=== PATIENT | male | born 1945 | race Caucasian/White ===

== ENCOUNTER 2016-07-31 07:00 | Emergency (ER) | payer MEDICARE ==
[~2016-07-31] VITALS: Ht 170.2 cm; Wt 78.2 kg
[~2016-07-31 07:00] MED LIST: ATOR20TA65 PO; CYAN500 PO; DILT240C51 PO; DOXA2TAB52 PO; INSU100V27 SQ; LABE200T PO; LISI-610 PO; NITR0.4T SL; NPH,100V11 SUBQ; TIMO5DRO5 BOTH_EYES; WARF5TAB7 PO
[2016-07-31 07:05] VITALS: BP 237/103; PULSE 78; RESP 10; O2SAT 95
--- NOTE | 2016-07-31 07:17 | ED.REPORT ---
HPI-General Illness Date of Service Jul 31, 2016 ED Provider: Woody Santos MD 70 year old diabetic male with chronic deafness and a history of stage 4 chronic kidney disease presents to the ER complaining of constipation last night. Associated symptom of throbbing abdominal pain onset yesterday, mild difficulty breathing, abdominal bloating, nausea, dry heaving, and loss of appetite. Patient states that he experiences a "burning" abdominal pain with his bowel movements. Last normal bowel movement was this morning. He had only an apple last night for dinner, and has been able to tolerate PO liquids. When questioned he admits that he has not taken his blood pressure medication this morning. Nursing Notes Stated Complaint: ABDOMINAL PAIN Chief Complaint: Male Abdominal Pain Nursing Notes Reviewed: Yes Allergies: Coded Allergies: banana (Verified Allergy, Unknown, 02/28/16) Patient stated he hasn't had a banana since the 1969's. He does not recall what reaction he had. Scheduled Atorvastatin Calcium (Atorvastatin Calcium) 20 Mg Tablet 20 MG PO HS Cyanocobalamin (Vitamin B12) 500 Mcg Tablet 1,000 MCG PO DAILY Diltiazem ER (Cartia XT) 240 Mg Cap.er.24h 240 MG PO DAILY Doxazosin (Cardura) 2 Mg Tablet 2 MG PO HS Insulin Regular, Human (Novolin-R U100 Insulin Vial) 100 Unit/1 Ml Vial 8 SQ BIDBL Insulin Regular, Human (Novolin-R U100 Insulin Vial) 100 Unit/1 Ml Vial 16 SQ before dinner Labetalol (Labetalol) 200 Mg Tablet 200 MG PO BID Lisinopril (Zestril) 10 Mg Tablet 10 MG PO HS NPH, Human Insulin Isophane (HUMulin-N U100 Insulin Vial) 100 Unit/1 Ml Vial 36 UNIT SUBQ Before breakfast NPH, Human Insulin Isophane (HUMulin-N U100 Insulin Vial) 100 Unit/1 Ml Vial 32 UNIT SUBQ Before Dinner Timolol Maleate (Timolol Maleate) 5 Ml Drops 1 DROP BOTH_EYES BID Warfarin Sodium (Warfarin Sodium) 5 Mg Tablet 10 MG PO DAILY Scheduled PRN Nitroglycerin SL (Nitrostat) 0.4 Mg Tab.subl 0.4 MG SL Q5MIN PRN PRN For Chest Pain General Time Seen by MD: 07:12 Chief Complaint Abdominal pain, Other (Constipation) Hx Obtained From: Patient Arrived By: Walk-in Sudden in Onset?: No Onset Occurred: Yesterday Symptom Duration: Since onset Location: : Abdomen Quality: Burning, Throbbing Severity: Current: Pain level 1 out of 10 Severity: Maximum: Pain level 1 out of 10 Associated with: Reports: Abdominal pain, Nausea, Vomiting (Dry-Heaving) Past Medical History Past Medical History Notes: PCP: Dr. Cobb in [facility], [facility], [facility] Past Medical History Transient A-Fib on Warfarin CVA Chronic kidney disease stage IV Reports: Coronary artery disease, Diabetes mellitus, Hyperlipidemia, Hypertension Past Surgical History none reported Family History Reports: Diabetes mellitus Smoking History Never Smoker Social History Chronically deaf Alcohol Use: Denies alcohol use Drug Use: Denies drug use Other Social History: Lives alone, Local resident Ambulatory Status Independent Review of Systems Full Review of Systems Constitutional: Denies: Chills, Fever Respiratory: Reports: Shortness of breath, Denies: Non-productive cough Cardiovascular: Denies: Chest pain GI: Reports: Abdominal pain, Constipation, Nausea, Vomiting (Dry Heaving) Musculoskeletal: Denies: Back pain, Neck pain Complete sys rev & neg: except as marked. Physical Exam Vital Signs Vital Signs Date Time Temp Pulse Resp B/P Pulse Ox O2 Delivery O2 Flow Rate FiO2 07/31/16 10:59 66 21 166/70 98 Nasal Cannula 2 07/31/16 09:59 66 24 180/73 96 Nasal Cannula 2 07/31/16 09:08 20 94 Nasal Cannula 2 07/31/16 09:04 67 18 154/76 90 Room Air 07/31/16 08:15 74 22 221/97 94 07/31/16 07:05 36.4 78 10 237/103 95 Room Air Initial VS: Reviewed Head / Eyes: Atraumatic, Normocephalic Neck: Supple, Non-tender, Full range of motion Extremities: Vascular intact, Neuro intact, No swelling, No tenderness Skin: Warm, Dry, No cyanosis Neurologic: Alert, Oriented, Nonfocal General/Constitutional: Awake, Alert, No acute distress, Well developed, Well nourished Deaf male who is a difficult historian. Respiratory / Chest: Breath sounds NL, No respiratory distress, No rales, No rhonchi, No wheezing Cardiovascular: Heart rate NL, Regular rhythm, Heart sounds NL, Cap refill not delayed, Peripheral circulation NL Abdomen: Soft, Non-tender, No guarding, No rebound Bowel Sounds / Distention: Positive: Bowel sounds hyperactive Male Genitourinary: Atraumatic, Inspection NL, Penis NL, Testes NL, No hernia Rectum / Perineum: Atraumatic, No gross blood, No fecal impaction, No fissures , No lesions Rectal for Blood: Positive: Blood - occult heme + (trace) Rectum / Perineum Abnl: Positive: Hemorrhoid external Brown stool in vault. Interpretation & Diagnostics Lab Results Interpretation Result Diagram: 07/31/16 0745 07/31/16 0745 Test 07/31/16 07:45 07/31/16 08:16 White Blood Count 7.6th/mm3 (3.8-10.1) Red Blood Count 3.30mil/mm3 (4.40-5.80) Hemoglobin 9.9g/dL (13.8-17.2) Hematocrit 29.7% (41.0-50.0) Mean Corpuscular Volume 90.0fL (81-100) Mean Corpuscular Hemoglobin 30.0pg (27.0-35.0) Mean Corpuscular Hemoglobin Concent 33.3% (32.0-37.0) Red Cell Distribution Width 13.6% (12.3-15.4) Platelet Count 281bil/L (150-400) Neutrophils (%) (Auto) 76.6% (40-74) Lymphocytes (%) (Auto) 10.8% (14-46) Monocytes (%) (Auto) 8.0% (4-12) Eosinophils (%) (Auto) 3.7% (0-5) Basophils (%) (Auto) 0.5% (0-3) Prothrombin Time 23.4sec (8.1-12.5) Prothromb Time International Ratio 2.15ratio Sodium Level 137mEq/L (134-144) Potassium Level 4.2mEq/L (3.5-5.2) Chloride Level 101mEq/L (97-108) Carbon Dioxide Level 22mmol/L (18-29) Blood Urea Nitrogen 32mg/dL (8-27) Creatinine 3.34mg/dL (0.76-1.27) Estimat Glomerular Filtration Rate 20mL/min (>59) Glucose Level 146mg/dL (60-99) Calcium Level 8.2mg/dL (8.5-10.1) Magnesium Level 1.9mg/dL (1.6-2.6) Total Bilirubin 0.4mg/dL (0.0-1.2) Aspartate Amino Transf (AST/SGOT) 13U/L (0-50) Alanine Aminotransferase (ALT/SGPT) 8U/L (0-44) Alkaline Phosphatase 108U/L (25-160) Troponin T 0.010ug/L (0.0-0.011) Total Protein 7.1g/dL (6.4-8.4) Albumin 3.4g/dL (3.4-5.0) Lipase 27U/L (13-60) Hold Schmidt Top Tube Received (Received) Urine Color Straw (YELLOW) Urine Appearance Clear (CLEAR,HAZY) Urine pH 7.0 (5.0-8.0) Urine Specific [place] 1.009 (1.003-1.035) Urine Protein 300mg/dL (NEG,TRACE) Urine Glucose (UA) 250mg/dL (NEGATIVE) Urine Ketones Negativemg/dL (NEGATIVE) Urine Occult Blood Moderate (NEGATIVE) Urine Nitrite Negative (NEGATIVE) Urine Bilirubin Negative (NEGATIVE) Urine Urobilinogen Normalmg/dL (NORMAL) Urine Leukocyte Esterase Negative (NEGATIVE) Urine RBC 3-10/hpf (0-2) Urine WBC 0-5/hpf (0-5) Urine Epithelial Cells Few/hpf (NONE-MOD) Urine Crystals None seen (NONE SEEN) Urine Bacteria None/hpf (NONE-FEW) Urine Hyaline Casts None/lpf (NONE) Urine Granular Casts None seen (NONE SEEN) Urine Waxy Casts None seen (NONE SEEN) Urine Red Blood Cell Casts None seen (NONE SEEN) Urine White Blood Cell Casts None seen (NONE SEEN) Urine Mucus None seen (None Seen) Urine Trichomonas None seen (NONE SEEN) Urine Yeast None (NONE SEEN) Urinalysis Comment None Urine Culture Reflexed Not indicated ECG Interpretation ECG Interpretation: Sinus rhythm, rate [address] Left atrial enlargement No ST segment changes Time: 07:57 Interpreted by: ED physician X-Ray Abdominal Interpretation IMPRESSION: 1. No abnormality is appreciated in the abdomen. Gas is present in nondistended bowel loops in small and large bowel. 2. Bibasilar subsegmental atelectasis is seen in the chest. Heart is enlarged but failure is not thought to be occurring. Dictated by: Eyad Antonio M.D. on 07/31/2016 at 8:40 Approved by: Eyad Antonio M.D. on 07/31/2016 at 8:42 Study: 2 view Interpretation / Wet Read by: Interpret - Radiologist Re-Eval/Medical Decision Med Decision/Clinical Course 70 year old with abdominal pain. Presents very hypertensive but had not taken BP meds. AAA considered, recent CT ruled out. Had normal BM today and no impaciton on rectal exam. Labs reassuring, no evidence of obstruciton on plain films. BP responded to usual home meds. Taking PO. Sats variable, but no resp distress/dyspnea and exam/imaging does not suggest an acute resp problem. Believe sats in mid 90s acceptable. Source of Hx: Old records Consultation : Note: Discussed physical examination findings and plan to discharge. Mother is amenable to the plan. Return precautions given. All other questions addressed. Counseled Regarding: Diagnosis, Lab results Discharge & Departure Primary Impression: Generalized abdominal pain Additional Impression: Hypertensive urgency Disposition: Home Discharge Condition All VS Reviewed: Yes Condition: Stable Patient Instructions: Acute Abdominal Pain (ED) Additional Instructions: Emergency Department evaluation included interview, examination, labs, ECG, review of past records, abdominal x-rays. No serious cause for abdominal pain is identified. We are glad it is improving. Blood pressure was very high on arrival today. After getting home a blood pressure medications this is improved to an acceptable level. It is very important to take blood pressure medications regularly as prescribed. Please plan to follow up with your nephrology doctor next week for review of today's visit. Return to emergency department for increasing abdominal pain, frequent vomiting or fevers. Referrals: [facility] (PCP) Sylvie Attestation Portions of this note were transcribed by Cam Salcedo. I, Dr. Santos, personally performed the history, physical exam and medical decision-making; I reviewed and confirmed the accuracy of the information in the transcribed note. Signed by: Sylvie Valle, 07/31/2016, and *time* Woody Santos MD Jul 31, 2016 07:16 CAM SALCEDO Jul 31, 2016 07:43
[2016-07-31] MEDS ORDERED: Diltiazem CD 240 mg ER24 Capsule PO ONE (07:40)
[2016-07-31 07:57] LABS: BASOPHILS % (AUTO) 0.5 % (0-3); EOSINOPHILS % (AUTO) 3.7 % (0-5); NEUTROPHILS % (AUTO) 76.6 % (40-74); Platelet Count 281 bil/L (150-400)
[2016-07-31 08:15] VITALS: BP 221/97; PULSE 74; RESP 22; O2SAT 94
[2016-07-31 08:23] LABS: INR 2.15 ratio
[2016-07-31 08:33] LABS: TROPONIN T 0.01 ug/L (0.0-0.011)
[2016-07-31 08:43] LABS: APPEARANCE,URINE CLEAR (CLEAR,HAZY); COLOR,URINE STRAW (YELLOW); OCCULT BLOOD,URINE MODERATE (NEGATIVE); UROBILINOGEN,URINE NORMAL (NORMAL)
[2016-07-31 08:44] LABS: Magnesium 1.9 mg/dL (1.6-2.6)
--- NOTE | 2016-07-31 08:45 | DRSVH ---
PROCEDURE: X-RAY ACUTE ABDOMINAL SERIES ([id number]) INDICATIONS: abdominal pain TECHNIQUE: One view chest and two views of the abdomen were acquired. COMPARISON: [facility], CR, XR ABD ACUTE SERIES 3VW, 02/16/2016, 7:35. FINDINGS: Surgical changes and devices: quality assurance monitor chassis leads are seen over the chest. Chest: Heart is enlarged. Pulmonary vasculature is thought to be normal. There some chronic markings present but failure and pneumonia are not thought to be present currently. Subsegmental atelectasis i s thought to be present at the lung bases. Abdomen: Bowel gas pattern is normal. No suspicious calcifications. Visualized solid organ contour s appear normal. Bones: No suspicious bony lesions. IMPRESSION: 1. No abnormality is appreciated in the abdomen. Gas is present in nondistended bowel loops in small and large bowel. 2. Bibasilar subsegmental atelectasis is seen in the chest. Heart is enlarged but failure is not thou ght to be occurring. Dictated by: Eyad Antonio M.D. on 07/31/2016 at 8:40 Approved by: Eyad Antonio M.D. on 07/31/2016 at 8:42
[2016-07-31 09:04] VITALS: BP 154/76; PULSE 67; RESP 18; O2SAT 90
[2016-07-31 09:08] VITALS: RESP 20; O2SAT 94
[2016-07-31 09:59] VITALS: BP 180/73; PULSE 66; RESP 24; O2SAT 96
[2016-07-31 10:59] VITALS: BP 166/70; PULSE 66; RESP 21; O2SAT 98
== END 2016-07-31 10:50 | disposition home or self-care (01) ==
LOC: SED 07:20
DX: R10.84 Generalized abdominal pain (principal); I12.9 Hypertensive chronic kidney disease with stage 1 through stage 4 chronic kidney disease, or unspecified chronic kidney disease; R06.00 Dyspnea, unspecified; R11.0 Nausea; R14.0 Abdominal distension (gaseous); R63.0 Anorexia; I48.91 Unspecified atrial fibrillation; H91.90 Unspecified hearing loss, unspecified ear; E11.22 Type 2 diabetes mellitus with diabetic chronic kidney disease; N18.4 Chronic kidney disease, stage 4 (severe); I25.10 Atherosclerotic heart disease of native coronary artery without angina pectoris; E78.5 Hyperlipidemia, unspecified; Z86.73 Personal history of transient ischemic attack (TIA), and cerebral infarction without residual deficits; Z79.01 Long term (current) use of anticoagulants; Z79.4 Long term (current) use of insulin

== ENCOUNTER 2016-10-16 07:25 | Emergency (ER) | payer MEDICARE ==
[~2016-10-16] VITALS: Ht 172.7 cm; Wt 84.1 kg
[2016-10-16 07:32] VITALS: BP 206/77; PULSE 65; RESP 15; O2SAT 98
--- NOTE | 2016-10-16 07:40 | ED.REPORT ---
HPI-Chest Pain 40 and Over Date of Service October 16, 2016 ED Provider: Tj Pierson DO The pt is a deaf 71 y/o male anticoagulated on Warfarin w/ a hx of A-fib, CHF, and HTN presenting to the ED complaining of chest pain onset this morning. He also reports a cough, lower extremity edema, SOB, and slight abdominal pain. He denies a fever. Nursing Notes Stated Complaint: CHEST PAIN/HARD TIME BREATHING Chief Complaint: Respiratory Distress Nursing Notes Reviewed: Yes Allergies: Coded Allergies: banana (Verified Allergy, Unknown, 02/28/16) Patient stated he hasn't had a banana since the 1969's. He does not recall what reaction he had. Scheduled Atorvastatin Calcium (Atorvastatin Calcium) 20 Mg Tablet 20 MG PO HS Cyanocobalamin (Vitamin B12) 500 Mcg Tablet 1,000 MCG PO DAILY Diltiazem ER (Cartia XT) 240 Mg Cap.er.24h 240 MG PO DAILY Doxazosin (Cardura) 2 Mg Tablet 2 MG PO HS Insulin Regular, Human (Novolin-R U100 Insulin Vial) 100 Unit/1 Ml Vial 8 SQ BIDBL Insulin Regular, Human (Novolin-R U100 Insulin Vial) 100 Unit/1 Ml Vial 16 SQ before dinner Labetalol (Labetalol) 200 Mg Tablet 200 MG PO BID Lisinopril (Zestril) 10 Mg Tablet 10 MG PO HS NPH, Human Insulin Isophane (HUMulin-N U100 Insulin Vial) 100 Unit/1 Ml Vial 36 UNIT SUBQ Before breakfast NPH, Human Insulin Isophane (HUMulin-N U100 Insulin Vial) 100 Unit/1 Ml Vial 32 UNIT SUBQ Before Dinner Timolol Maleate (Timolol Maleate) 5 Ml Drops 1 DROP BOTH_EYES BID Warfarin Sodium (Warfarin Sodium) 5 Mg Tablet 10 MG PO DAILY Scheduled PRN Nitroglycerin SL (Nitrostat) 0.4 Mg Tab.subl 0.4 MG SL Q5MIN PRN PRN For Chest Pain General Time Seen by MD: 07:39 Chief Complaint Chest pain Arrived By: Walk-in Sudden in Onset?: Yes Location: : Substernal Quality: Painful Severity: Current: Mild Severity: Maximum: Mild Recent Healthcare: Recent doctor visit, Recent hospitalization Similar Sx Previous: Yes Past Medical History Past Medical History Notes: PCP: Dr. Cobb in [facility], Anmol Deaf, ASL Past Medical History Transient A-Fib on Warfarin CVA Chronic kidney disease stage IV Respiratory failure CHF Reports: Coronary artery disease, Diabetes mellitus, Hyperlipidemia, Hypertension Past Surgical History none reported Family History Reports: Diabetes mellitus Smoking History Never Smoker Social History Chronically deaf Alcohol Use: Denies alcohol use Drug Use: Denies drug use Other Social History: Lives alone, Local resident Ambulatory Status Independent Review of Systems Lower extremity edema Constitutional: Denies: Fever Respiratory: Reports: Non-productive cough, Shortness of breath Cardiovascular: Reports: Chest pain GI: Reports: Abdominal pain (Slight ) Complete sys rev & neg: except as marked. Physical Exam Initial Vital Signs Vital Signs (First) Date Time Temp Pulse Resp B/P Pulse Ox O2 Delivery O2 Flow Rate FiO2 10/16/16 07:32 36.6 65 15 206/77 98 Room Air Initial VS: Reviewed Head / Eyes: Atraumatic, Normocephalic, PERRL ENT: Mucous membranes moist, Conjunctiva normal, No scleral icterus Neck: Supple, Non-tender, Full range of motion Back: No CVA tenderness Skin: Warm, Dry, No cyanosis Neurologic: Alert, Oriented, Nonfocal Psychiatric: Mood/affect normal, Behavior normal, Normal thought content General/Constitutional: Awake, Alert Respiratory / Chest: Breath sounds NL, Breath sounds = bilat, No respiratory distress, No rales, No rhonchi, No wheezing, No stridor, No chest tenderness Cardiovascular: Heart rate NL, Regular rhythm, Heart sounds NL, No murmurs Lower extremity edema Abdomen: Soft, Non-tender, McBurney's non-tender, No guarding, No rebound, BS normoactive, No distention, No hernia, No palpable mass Interpretation & Diagnostics Lab Results Interpretation Result Diagram: 10/16/16 0752 10/16/16 0752 Test 10/16/16 07:52 10/16/16 09:40 White Blood Count 5.9th/mm3 (3.8-10.1) Red Blood Count 3.45mil/mm3 (4.40-5.80) Hemoglobin 10.4g/dL (13.8-17.2) Hematocrit 31.1% (41.0-50.0) Mean Corpuscular Volume 90.1fL (81-100) Mean Corpuscular Hemoglobin 30.1pg (27.0-35.0) Mean Corpuscular Hemoglobin Concent 33.4% (32.0-37.0) Red Cell Distribution Width 12.8% (12.3-15.4) Platelet Count 202bil/L (150-400) Neutrophils (%) (Auto) 75.5% (40-74) Lymphocytes (%) (Auto) 14.7% (14-46) Monocytes (%) (Auto) 5.5% (4-12) Eosinophils (%) (Auto) 3.2% (0-5) Basophils (%) (Auto) 0.9% (0-3) Prothrombin Time 25.4sec (8.1-12.5) Prothromb Time International Ratio 2.33ratio Sodium Level 137mEq/L (134-144) Potassium Level 4.6mEq/L (3.5-5.2) Chloride Level 102mEq/L (97-108) Carbon Dioxide Level 21mmol/L (18-29) Blood Urea Nitrogen 49mg/dL (8-27) Creatinine 3.83mg/dL (0.76-1.27) Estimat Glomerular Filtration Rate 17mL/min (>59) Glucose Level 244mg/dL (60-99) Calcium Level 8.3mg/dL (8.5-10.1) Magnesium Level 1.9mg/dL (1.6-2.6) Total Bilirubin 0.2mg/dL (0.0-1.2) Aspartate Amino Transf (AST/SGOT) 13U/L (0-50) Alanine Aminotransferase (ALT/SGPT) 10U/L (0-44) Alkaline Phosphatase 134U/L (25-160) Pro-B-Type Natriuretic Peptide 672.8pg/mL (0-376) Total Protein 7.2g/dL (6.4-8.4) Albumin 3.6g/dL (3.4-5.0) Troponin T 0.010ug/L (0.0-0.011) ECG Interpretation ECG Interpretation: Rate 62 Normal sinus rhythm Left atrial enlargement Sinus rhythm and non-specific ST changes Time: 07:35 Interpreted by: ED physician ECG Interpretation: Rate 68 Normal sinus rhythm Probable left atrial enlargement Time: 10:11 Interpreted by: ED physician X-Ray Chest Interpretation Chest Xray Interpretation: IMPRESSION: 1. Cardiomegaly. 2. Probable basilar atelectasis or scarring without acute consolidation. Dictated by: Billy Sanford M.D. on 10/16/2016 at 9:14 Approved by: Billy Sanford M.D. on 10/16/2016 at 9:15 View: Portable, 1 view Re-Eval/Medical Decision Time of Eval: 09:05 Re-Evaluation/Progress Note: Pt rechecked. Able to perform road test with no difficulties. Time of Eval: 09:31 Re-Evaluation/Progress Note: Pt rechecked. Pt feels better. Informed pt of plan for treatment. Pt understands and agrees with plan for treatment. F/U instructions and RTER warnings given. All questions addressed. Counseled Regarding: Diagnosis, Lab results, Need for follow-up, When/why to return to ED Discharge & Departure Primary Impression: Chest pain Chest pain type: unspecified Qualified Code: R07.9 - Chest pain, unspecified Disposition: Home Discharge Condition All VS Reviewed: Yes Condition: Stable Additional Instructions: Overall your tests are reassuring. Continue your regular medicines. Call your regular doctor for close follow-up. Return to ER for recurrent chest pain, severe trouble breathing, or any other concerns. Referrals: [facility] (PCP) (Family) Scribe Attestation Portions of this note were transcribed by Rob Gill and Terence Ann. I, Dr. Mimi Jackson personally performed the history, physical exam and medical decision- making; I reviewed and confirmed the accuracy of the information in the transcribed note. Signed by: Aletha Miguel, 10/16/16 and 1045. copies to: ANMOL VILLEGASTj Patino October 16, 2016 07:40 Rob Gill October 16, 2016 09:07 TERENCE ANN October 16, 2016 10:58
[2016-10-16 08:07] LABS: BASOPHILS % (AUTO) 0.9 % (0-3); EOSINOPHILS % (AUTO) 3.2 % (0-5); MONOCYTES % (AUTO) 5.5 % (4-12); Mean Corpuscular Hemoglobin 30.1 pg (27.0-35.0); Mean Corpuscular Volume 90.1 fL (81-100); NEUTROPHILS % (AUTO) 75.5 % (40-74); Platelet Count 202 bil/L (150-400)
[2016-10-16 08:18] VITALS: BP 196/70; PULSE 70; RESP 19; O2SAT 94
[2016-10-16 08:30] LABS: INR 2.33 ratio
[2016-10-16 08:38] LABS: TROPONIN T 0.01 ug/L (0.0-0.011)
[2016-10-16 08:49] LABS: Magnesium 1.9 mg/dL (1.6-2.6)
[2016-10-16 08:55] VITALS: BP 182/79; PULSE 66; RESP 16; O2SAT 96
[2016-10-16] MEDS ORDERED: Diltiazem CD 240 mg ER24 Capsule PO ONE (09:05)
[2016-10-16] MEDS ORDERED: Insulin ASPART 70/30 100 Unit/mL Syringe SUBQ ONE (09:05)
--- NOTE | 2016-10-16 09:23 | DRSVH ---
PROCEDURE: X-RAY CHEST ONE VIEW, PORTABLE ([id number]) INDICATIONS: CP SOB TECHNIQUE: One view of the chest was acquired. COMPARISON: [facility], CR, XR CHEST 1VW (PORTABLE), 02/29/2016, 5:15. FINDINGS: Surgical changes and devices: None. Lungs and pleura: No pleural effusions or pneumothorax. No focal consolidation. There are mild julio césar ear opacities in the lung bases likely reflecting scarring or atelectasis. Mediastinum: Mediastinal contours appear unchanged. Heart size is enlarged. Bones and chest wall: No suspicious bony lesions. Overlying soft tissues appear unremarkable. IMPRESSION: 1. Cardiomegaly. 2. Probable basilar atelectasis or scarring without acute consolidation. Dictated by: Billy Sanford M.D. on 10/16/2016 at 9:14 Approved by: Billy Sanford M.D. on 10/16/2016 at 9:15
[2016-10-16] MEDS ORDERED: Insulin LISPRO 300 Unit/3 mL Inj SUBQ ONE (09:30)
[2016-10-16 09:49] VITALS: BP 194/79; PULSE 69; RESP 20; O2SAT 97
[2016-10-16 10:55] VITALS: BP 180/76; PULSE 71; RESP 18; O2SAT 97
== END 2016-10-16 10:59 | disposition home or self-care (01) ==
LOC: SED 07:25
DX: R07.2 Precordial pain (principal); R05 Cough; R06.02 Shortness of breath; I13.0 Hypertensive heart and chronic kidney disease with heart failure and stage 1 through stage 4 chronic kidney disease, or unspecified chronic kidney disease; E11.22 Type 2 diabetes mellitus with diabetic chronic kidney disease; I50.9 Heart failure, unspecified; N18.4 Chronic kidney disease, stage 4 (severe); I25.10 Atherosclerotic heart disease of native coronary artery without angina pectoris; I48.91 Unspecified atrial fibrillation; E78.5 Hyperlipidemia, unspecified; Z86.73 Personal history of transient ischemic attack (TIA), and cerebral infarction without residual deficits; Z79.4 Long term (current) use of insulin; Z79.01 Long term (current) use of anticoagulants; Z91.018 Allergy to other foods
CPT/HCPCS: 36415; 71010; 80053; 83735; 83880; 84484; 85025; 85610; 93005; 96372; 99285; J1815